=== PATIENT | male | born 1945 | race Caucasian/White ===

== ENCOUNTER 2024-01-24 12:04 | Inpatient (IN) | payer OTHER ==
[~2024-01-24] VITALS: Ht 175.3 cm; Wt 83.8 kg
[~2024-01-24 12:04] MED LIST: ASPI81CH PO; CLOP75 PO; ENTRESTO 24 MG1 EACH PO; FARXIGA10 MG PO; FISH OIL 1,0001 EA10 PO; GLUCHON PO; MULVITA PO; NIAC250ER PO; NITR.4SL SL; ROSU10TA PO
[2024-01-24 14:38] LABS: BASOPHILS ABSOLUTE AUTO 0.07 K/mm3 (0.00-0.23); BASOPHILS PERCENT AUTO 1 % (0-2); EOSINOPHILS PERCENT AUTO 3 % (0-6); Hematocrit 42.2 % (37.0-53.0); Hemoglobin 13.9 g/dL (13.5-17.5); IMMATURE GRAN ABSOLUTE AUTO 0.01 K/mm3 (0.00-0.10); IMMATURE GRAN PERCENT AUTO 0 % (0-1); LYMPHOCYTES PERCENT AUTO 22 % (21-46); MONOCYTES ABSOLUTE AUTO 0.52 K/mm3 (0.16-1.47); MONOCYTES PERCENT AUTO 8 % (4-13); Mean Corpuscular HGB 30.6 pg (26.0-34.0); Mean Corpuscular HGB Conc 32.9 g/dL (31.5-36.5); Mean Corpuscular Volume 93 fL (80-100); Mean Platelet Volume 10.6 fL (9.1-12.4); NEUTROPHILS ABSOLUTE AUTO 4.55 K/mm3 (1.96-9.15); NEUTROPHILS PERCENT AUTO 67 % (41-73); Platelet Count 197 K/mm3 (150-400); RDW Coefficient Variation 12.8 % (11.7-14.2); RDW Standard Deviation 43.9 fL (35.1-46.3); Red Blood Cell Count 4.54 M/mm3 (4.30-5.90); White Blood Cell Count 6.85 K/mm3 (4.00-11.30)
[2024-01-24 15:07] LABS: Albumin, Blood 3.8 g/dL (3.4-5.0); Albumin/Globulin Ratio 1.2 (0.8-1.8); Bilirubin, Total 0.5 mg/dL (0.1-1.0); Calcium, Blood 9.9 mg/dL (8.5-10.1); Creatinine, Blood 1.87 mg/dL (0.60-1.20); Globulin, Blood 3.1 g/dL (2.2-4.0); Potassium, Blood 5.3 mmol/L (3.5-5.5); Total Protein, Blood 6.9 g/dL (6.4-8.2)
[2024-01-24] MEDS ORDERED: Nitroglycerin 0.4 MG SUBL SL ONE (16:00)
[2024-01-24] MEDS ORDERED: Aspirin 81 MG Chew PO ONE (16:00)
[2024-01-24] MEDS ORDERED: Nitroglycerin 1 INCH/GM PKT TOP ONE (16:10)
[2024-01-24] MEDS ORDERED: Rivaroxaban 10 MG Tab PO SCH (19:30)
[2024-01-24] MEDS ORDERED: NS 1,000 ML IV SCH (19:35)
[2024-01-24] MEDS ORDERED: Ondansetron HCl 2 MG / ML 2ML Vial IV PRN (19:35)
[2024-01-24] MEDS ORDERED: JARDIANCE10 MG PO (20:14)
[2024-01-24] MEDS ORDERED: QUNOL MEGA COQ100 MG PO (20:18)
[2024-01-24 20:39] VITALS: BP 128/55
[2024-01-24] MEDS ORDERED: FLU VACC TS2024-25(6MOS UP)/PF 45 MCG/0.5 ML SYRINGE IM ONE (21:00)
[2024-01-25 03:50] VITALS: BP 119/63
--- NOTE | 2024-01-25 06:21 | NUR ---
Shift Summary Pt admitted to this unit from ED for chest pain. Troponins are negative, elevated BNP at 157. Pt described 3/10 chest pressure in the ED and 1/10 on this unit. Per ED report that gave tried nitro paste in the ED which tanked his BP and they took it off and D/C'd the order. Pt has a new Dx of a-flutter, on anticoagulant as ordered. He is on tele running sinus jose from 39-60, his baseline HR is in the 50s. No s/sx of bradyacdia although pt did have episodes of vertigo and dizzyness earlier this year. He is AOx4, independent in the room. No c/o of chest pain t/o the night. Pt has been NPO since 0000 incase cardiac testing is ordered today.
[2024-01-25 07:48] VITALS: BP 129/70
[2024-01-25] MEDS ORDERED: Clopidogrel Bisulfate 75 MG Tab PO SCH (09:00)
[2024-01-25] MEDS ORDERED: Sacubitril/Valsartan 24 MG-26 MG Tab PO SCH (11:30)
[2024-01-25] MEDS ORDERED: Empagliflozin 10 MG TAB PO SCH (11:30)
[2024-01-25 15:12] VITALS: BP 125/63
--- NOTE | 2024-01-25 15:56 | NUR ---
SHIFT SUMMARY PT AWAKE AT START OF SHIFT. PLEASANT AND CO-OP WITH CARE. PT ADMITTED FOR CHEST PRESSURE AND SYMPTOMATIC BRADYCARDIA. PT KEPT NPO UNTIL CLARIFIED WITH DR NIELSON. CARDIOLOGY CONSULT ORDER PLACED; DR GREGORIO NOTIFIED AND LATER TO TO TALK WITH PT. PACEMAKER TO BE PLACED IN AM; CONSENT SIGNED AND PLACED IN CHART. PT ABLE TO EAT AND DRINK TODAY AND THEN TO BE NPO AT ME, PER DR GREGORIO. PT WILL BE TX'D TO PCU AFTER PACEMAKER PLACEMENT. PT UP TO SHOWER THIS AM. NO C/O DIZZINESS OR C/P SINCE ADMISSION. VISITORS TO OFF AND ON. DENIES FURTHER NEEDS AT THIS TIME. CALL LT IN REACH.
[2024-01-25 19:31] VITALS: BP 127/63
[2024-01-25] MEDS ORDERED: NS 1,000 ML IV SCH (21:00)
[2024-01-25] MEDS ORDERED: Rosuvastatin Calcium 10 MG Tab PO SCH (21:00)
[2024-01-26] VITALS (9 sets, daily range): BP systolic 114–143; BP diastolic 59–85
[2024-01-26 05:32] LABS: BASOPHILS ABSOLUTE AUTO 0.06 K/mm3 (0.00-0.23); BASOPHILS PERCENT AUTO 1 % (0-2); EOSINOPHILS ABSOLUTE AUTO 0.33 K/mm3 (0.00-0.68); EOSINOPHILS PERCENT AUTO 7 % (0-6); Hematocrit 38.6 % (37.0-53.0); Hemoglobin 12.5 g/dL (13.5-17.5); IMMATURE GRAN ABSOLUTE AUTO 0.01 K/mm3 (0.00-0.10); IMMATURE GRAN PERCENT AUTO 0 % (0-1); LYMPHOCYTES ABSOLUTE AUTO 1.19 K/mm3 (0.84-5.20); LYMPHOCYTES PERCENT AUTO 25 % (21-46); MONOCYTES ABSOLUTE AUTO 0.46 K/mm3 (0.16-1.47); MONOCYTES PERCENT AUTO 10 % (4-13); Mean Corpuscular HGB 30.2 pg (26.0-34.0); Mean Corpuscular HGB Conc 32.4 g/dL (31.5-36.5); Mean Corpuscular Volume 93 fL (80-100); Mean Platelet Volume 10.5 fL (9.1-12.4); NEUTROPHILS ABSOLUTE AUTO 2.79 K/mm3 (1.96-9.15); NEUTROPHILS PERCENT AUTO 58 % (41-73); Platelet Count 160 K/mm3 (150-400); RDW Coefficient Variation 12.6 % (11.7-14.2); RDW Standard Deviation 43.6 fL (35.1-46.3); Red Blood Cell Count 4.14 M/mm3 (4.30-5.90); White Blood Cell Count 4.84 K/mm3 (4.00-11.30)
[2024-01-26 05:47] LABS: Alanine Aminotransfer (ALT/SGP 17 U/L (12-78); Albumin, Blood 3.4 g/dL (3.4-5.0); Albumin/Globulin Ratio 1.2 (0.8-1.8); Alk Phos 64 U/L (50-136); Anion Gap 11 mmol/L (3-11); Aspartate Aminotrans (AST/SGOT 16 U/L (12-37); Bilirubin, Total 0.4 mg/dL (0.1-1.0); Blood Urea Nitrogen 25 mg/dL (8-24); CHOL/HDL RATIO 2.8; CO2, Blood 23 mmol/L (21-32); Calcium, Blood 9.3 mg/dL (8.5-10.1); Chloride, Blood 115 mmol/L (98-108); Cholesterol 120 mg/dL (50-200); Creatinine, Blood 1.39 mg/dL (0.60-1.20); Globulin, Blood 2.8 g/dL (2.2-4.0); Glomerular Filtration Rate 52 (60-); Glucose, Blood 86 mg/dL (70-99); HDL Cholesterol 43 mg/dL (>39); LDL/HDL RATIO 1.3; Low Density Lipoprotein Chol 55 mg/dL (0-110); Potassium, Blood 4.2 mmol/L (3.5-5.5); Sodium, Blood 145 mmol/L (136-145); Total Protein, Blood 6.2 g/dL (6.4-8.2); Triglycerides 112 mg/dL (30-160); Very Low Density Lipoprot Chol 22 mg/dL (6-32)
--- NOTE | 2024-01-26 06:11 | NUR ---
Shift Summary PT NPO since 0000 for planned pacemaker placement today. No overnight events. No chest pain, no dizzyness. Pt slept well t/o the night. Independent, AOx4.
[2024-01-26] MEDS ORDERED: CeFAZolin Sodium 2,000 MG in NS 100 ML IV SCH ×2 (09:00→19:30)
[2024-01-26] MEDS ORDERED: CeFAZolin Sodium 1000 mg Vial ONE (10:32)
[2024-01-26] MEDS ORDERED: Heparin Sodium 1000 Units/ML 10ML MDV ONE (10:33)
[2024-01-26] MEDS ORDERED: Bupivacaine 0.5% HCl 5 MG/ML 30MLVIAL ONE (10:33)
[2024-01-26] MEDS ORDERED: NS 1,000 ML IV ONE ×2 (10:33→10:47)
[2024-01-26] MEDS ORDERED: Midazolam HCl 1MG / ML 2ML Vial ONE ×2 (10:47→11:03)
[2024-01-26] MEDS ORDERED: FentaNYL Citrate 50 MCG/ML 2 ML Injection ONE ×2 (10:47→11:04)
[2024-01-26] MEDS ORDERED: CeFAZolin Sodium 2,000 MG VIAL ONE (10:55)
[2024-01-26] MEDS ORDERED: NS 100 ML IV ONE (10:55)
[2024-01-26] MEDS ORDERED: HYDROcodone 10-APAP 325 TAB PO PRN (12:40)
[2024-01-26] MEDS ORDERED: OxyCODONE HCL 5 MG TAB PO PRN (12:40)
[2024-01-26] MEDS ORDERED: Acetaminophen 325 MG TABLET PO PRN (12:40)
--- NOTE | 2024-01-26 12:57 | NUR ---
REPORT GIVEN TO [employer]ING [employer]ACER, BELONGINGS AND FAMILY WALKED TO PT ROOM 215
[2024-01-26] MEDS ORDERED: Metoprolol Succinate 25 MG TABCR PO SCH (13:00)
--- NOTE | 2024-01-26 14:47 | NUR ---
PT ARRIVED TO [facility] VIA WHEELCHAIR FROM [employer] ADVISOR AT APROX 1300, PT'S FAMILY AND BELONGINGS ALREADY WAITING IN THE ROOM FOR HIM. PT IS A&OX4, PACEMAKER SITE IS C/D/I WITH NO BLEEDING OR HEMATOMA NOTED. RT ARM SENSATION INTACT. PT STATES HIS BREATHING FEELS IMPROVED AFTER HAVING THE PACEMAKER PLACED. PT PLACED ON CONTINUOUS TELEMETRY AND MONITORING, REVEALING AN ATRIAL PACED RHYTHM HR 60 BPM. PT EDUCATED ON PAIN CONTROL AND MOVEMENT RESTRICTIONS FOR RT ARM, PT VERBALIZES UNDERSTANDING. PT AND FAMILY HAVE NO FURTHER QUESTIONS OR CONCERNS. BREATH SOUNDS ARE CLEAR BILAT, RA SPO2 99%. ICE PACK PLACED TO PACEMAKER SITE. PT ORIENTED TO ROOM/CALL LIGHT/UNIT ROUTINES. CALL LIGHT IN REACH, WILL CONTINUE TO MONITOR. PT DENIES CHEST PAIN/PRESSURE OF ANY KIND.
--- NOTE | 2024-01-26 18:28 | NUR ---
NO ACUTE CHANGES SINCE ARRIVAL TO UNIT. PT HAS CONTINUED TO BE APACED W HR 60BPM. NO CHANGE IN RESPIRATORY STATUS, PACEMAKER SITE AND SENSATION/CIRCULATION TO RT ARM. PT HAS BEEN RESTING QUIETLY IN BED AND VISITING WITH FAMILY. PT STATES PAIN IS WELL CONTROLLED AT THIS TIME AND DECLINES PAIN MEDICATION. PT AGAIN EDUCATED ON PAIN CONTROL MEASURES AND IS ENCOURAGED TO NOTIFY STAFF IF HE FEELS THE NEED FOR MEDICATION OR AN ICE PACK. THIS RN CALLED [employer] FOR A LARGER SHOULDER SPLINT, NONE WAS AVAILABLE. PT HAS BEEN COMPLIANT WITH RT ARM RESTRICTIONS. WILL PLACE ARM SLING INSTEAD OF SPLINT. PT HAS BEEN CALM AND COOPERATIVE, ABLE TO MAKE NEEDS KNOWN AND USE CALL LIGHT EFFECTIVELY. BED IN LOWEST, LOCKED POSITION AND CALL LIGHT IN REACH AT THIS TIME. WILL CONTINUE TO MONITOR AND GIVE REPORT TO NOC SHIFT RN.
[2024-01-26] MEDS ORDERED: NS 250 ML IV PRN (19:45)
[2024-01-27 03:33] VITALS: BP 122/73
[2024-01-27 04:28] LABS: BASOPHILS ABSOLUTE AUTO 0.06 K/mm3 (0.00-0.23); BASOPHILS PERCENT AUTO 1 % (0-2); EOSINOPHILS ABSOLUTE AUTO 0.29 K/mm3 (0.00-0.68); EOSINOPHILS PERCENT AUTO 4 % (0-6); Hematocrit 43.3 % (37.0-53.0); IMMATURE GRAN ABSOLUTE AUTO 0.02 K/mm3 (0.00-0.10); IMMATURE GRAN PERCENT AUTO 0 % (0-1); LYMPHOCYTES PERCENT AUTO 25 % (21-46); MONOCYTES PERCENT AUTO 6 % (4-13); Mean Corpuscular HGB 30.4 pg (26.0-34.0); Mean Corpuscular HGB Conc 32.3 g/dL (31.5-36.5); Mean Corpuscular Volume 94 fL (80-100); Mean Platelet Volume 10.2 fL (9.1-12.4); NEUTROPHILS ABSOLUTE AUTO 4.99 K/mm3 (1.96-9.15); NEUTROPHILS PERCENT AUTO 64 % (41-73); Platelet Count 178 K/mm3 (150-400); RDW Coefficient Variation 12.6 % (11.7-14.2); RDW Standard Deviation 43.6 fL (35.1-46.3); Red Blood Cell Count 4.61 M/mm3 (4.30-5.90); White Blood Cell Count 7.76 K/mm3 (4.00-11.30)
[2024-01-27 04:53] LABS: Albumin, Blood 3.6 g/dL (3.4-5.0); Albumin/Globulin Ratio 1.1 (0.8-1.8); Bilirubin, Total 0.4 mg/dL (0.1-1.0); Bun/Creatinine Ratio 19.4 (12.0-20.0); Calcium, Blood 9.8 mg/dL (8.5-10.1); Creatinine, Blood 1.44 mg/dL (0.60-1.20); Globulin, Blood 3.3 g/dL (2.2-4.0); Magnesium, Blood 1.9 mg/dL (1.6-2.4); Potassium, Blood 3.9 mmol/L (3.5-5.5); Total Protein, Blood 6.9 g/dL (6.4-8.2)
--- NOTE | 2024-01-27 06:38 | NUR ---
SHIFT SUMMARY PATIENT ALERT AND ORIENTED X4. MEDICATED PER EMAR FOR PAIN. HAD NO COMPLAINTS OF SHORTNESS OF BREATH. ON ROOM AIR WITH SPO2 >95%. VITAL SIGNS STABLE, ATRIAL PACED ON TELE, 0500 EKG OBTAINED. NO ACUTE ISSUES NOTED OVERNIGHT. WILL CONTINUE TO MONITOR. CALL LIGHT WITHIN REACH.
[2024-01-27] MEDS ORDERED: Apixaban 5 MG Tab PO SCH (09:00)
[2024-01-27 10:05] VITALS: BP 101/60
[2024-01-27] MEDS ORDERED: ELIQUIS5 M2 PO (13:03)
[2024-01-27] MEDS ORDERED: METO25ER PO (13:04)
--- NOTE | 2024-01-27 14:16 | NUR ---
ASSUMED CARE OF PT AT 0700 THIS AM. NO ACUTE EVENTS NOTED. PT REMAINS MOSTLY A PACED ON TELEMETRY WITH A FEW V PACED BEATS. PT DENIES CHEST PAIN OR DYSPNEA, STATES "I FEEL SO MUCH BETTER." DR GREGORIO IN ROOM THIS AM, STATES PT CAN DISCHARGE PENDING HOSPITALIST TEAM APPROVAL. DR NIELSON IN TO SEE PT AND WILL PLACE ORDERS. IV/TELE REMOVED AT 1405 AND PT DISCHARGED HOME IN THE CARE OF HIS . ALL DISCHARGE TEACHING REVEIWED W PT/ AT BEDSIDE, INCLUDING NEW MEDICATIONS, MEDICATION LIST, FOLLOW UP APPOINTMENTS, EDUCATION MATERIALS AND POST-PACEMAKER INSERTION CARE. NEITHER PT OR HAVE ANY FURTHER QUESTIONS AT THIS TIME. PT IS ABLE TO STAND, AMBULATE, GAIT STEADY. PT CHOSE TO AMBULATE OUT OF THE HOSPITAL TODAY. ALL BELONGINGS SENT HOME WITH PT. NO FURTHER DISCHARGE NEEDS IDENTIFIED.
== END 2024-01-27 14:10 | disposition home or self-care (01) | DRG 243 ==
LOC: ER 12:04 → MEDS 12:05 → PCU 01-25 15:01 → MEDS 01-25 15:02 → PCU 01-26 13:00
PROVIDERS: Emergency Medicine; Internal Medicine Cardiovascular Disease; ADMIT Internal Medicine
PROC: 0JH606Z Insertion of Pacemaker, Dual Chamber into Chest Subcutaneous Tissue and Fascia, Open Approach (ICD-10-PCS; principal; 2024-01-26)
PROC: 02H63JZ Insertion of Pacemaker Lead into Right Atrium, Percutaneous Approach (ICD-10-PCS; 2024-01-26)
PROC: 02HK3JZ Insertion of Pacemaker Lead into Right Ventricle, Percutaneous Approach (ICD-10-PCS; 2024-01-26)
DX: I49.5 Sick sinus syndrome (principal); I13.0 Hypertensive heart and chronic kidney disease with heart failure and stage 1 through stage 4 chronic kidney disease, or unspecified chronic kidney disease; I50.22 Chronic systolic (congestive) heart failure; N17.9 Acute kidney failure, unspecified; I25.110 Atherosclerotic heart disease of native coronary artery with unstable angina pectoris; I48.92 Unspecified atrial flutter; I48.0 Paroxysmal atrial fibrillation; Z95.0 Presence of cardiac pacemaker; N18.32 Chronic kidney disease, stage 3b; E78.5 Hyperlipidemia, unspecified; Z95.5 Presence of coronary angioplasty implant and graft; Z88.8 Allergy status to other drugs, medicaments and biological substances; Z79.02 Long term (current) use of antithrombotics/antiplatelets; Z79.82 Long term (current) use of aspirin; Z79.899 Other long term (current) drug therapy
CPT/HCPCS: 33208; 36415; 71045; 71046; 80053; 80061; 83735; 83880; 84443; 84484; 85025; 90656; 93005; 93010; 93306; 99152; 99153; 99285-25; A9270; C1785; C1898; G0378; J0690; J1644; J2250; J3010; J7030; J7040; J7050; Q9967

== ENCOUNTER 2024-01-28 10:08 | Emergency (ER) | payer OTHER ==
[~2024-01-28] VITALS: Ht 175.3 cm; Wt 81.7 kg
[~2024-01-28 10:08] MED LIST changes: +ELIQUIS5 M2 PO; +JARDIANCE10 MG PO; +METO25ER PO; +QUNOL MEGA COQ100 MG PO
[2024-01-28] MEDS ORDERED: NS 1,000 ML IV SCH (10:30)
[2024-01-28 10:42] LABS: BASOPHILS ABSOLUTE AUTO 0.05 K/mm3 (0.00-0.23); BASOPHILS PERCENT AUTO 1 % (0-2); EOSINOPHILS ABSOLUTE AUTO 0.25 K/mm3 (0.00-0.68); EOSINOPHILS PERCENT AUTO 4 % (0-6); Hematocrit 39.6 % (37.0-53.0); Hemoglobin 13.1 g/dL (13.5-17.5); IMMATURE GRAN ABSOLUTE AUTO 0.02 K/mm3 (0.00-0.10); IMMATURE GRAN PERCENT AUTO 0 % (0-1); LYMPHOCYTES ABSOLUTE AUTO 1.11 K/mm3 (0.84-5.20); LYMPHOCYTES PERCENT AUTO 18 % (21-46); MONOCYTES ABSOLUTE AUTO 0.48 K/mm3 (0.16-1.47); MONOCYTES PERCENT AUTO 8 % (4-13); Mean Corpuscular HGB 30.6 pg (26.0-34.0); Mean Corpuscular HGB Conc 33.1 g/dL (31.5-36.5); Mean Corpuscular Volume 93 fL (80-100); Mean Platelet Volume 10.2 fL (9.1-12.4); NEUTROPHILS ABSOLUTE AUTO 4.44 K/mm3 (1.96-9.15); NEUTROPHILS PERCENT AUTO 70 % (41-73); Platelet Count 146 K/mm3 (150-400); RDW Coefficient Variation 12.6 % (11.7-14.2); Red Blood Cell Count 4.28 M/mm3 (4.30-5.90); White Blood Cell Count 6.35 K/mm3 (4.00-11.30)
[2024-01-28 11:13] LABS: Albumin, Blood 3.6 g/dL (3.4-5.0); Albumin/Globulin Ratio 1.1 (0.8-1.8); Bilirubin, Total 0.5 mg/dL (0.1-1.0); Bun/Creatinine Ratio 20.9 (12.0-20.0); Creatinine, Blood 1.72 mg/dL (0.60-1.20); Globulin, Blood 3.2 g/dL (2.2-4.0); Magnesium, Blood 2.4 mg/dL (1.6-2.4); Potassium, Blood 4.2 mmol/L (3.5-5.5); Total Protein, Blood 6.8 g/dL (6.4-8.2)
[2024-01-28 14:30] VITALS: BP 118/68
== END 2024-01-28 14:45 | disposition home or self-care (01) ==
LOC: ER 10:08
PROVIDERS: Student in an Organized Health Care Education/Training Program
DX: R55 Syncope and collapse (principal); E86.0 Dehydration; E78.5 Hyperlipidemia, unspecified; Z95.0 Presence of cardiac pacemaker; Z87.891 Personal history of nicotine dependence; Z79.02 Long term (current) use of antithrombotics/antiplatelets; Z79.899 Other long term (current) drug therapy; Z88.8 Allergy status to other drugs, medicaments and biological substances
CPT/HCPCS: 71046; 80053; 83735; 83880; 84484; 85025; 93005; 93010; 99284-25; J7030